=== PATIENT | male | born 1985 | race Caucasian/White ===

== ENCOUNTER 2020-01-02 10:08 | Emergency (ER) | payer OTHER, SELFPAY ==
[2020-01-02 10:20] VITALS: BP 143/88; PULSE 76; RESP 18; TEMP 36.7; O2SAT 98
--- NOTE | 2020-01-02 10:41 | ED.HA ---
HPI - Headache General Chief Complaint: Headache Stated Complaint: Headache Time Seen by Provider: 01/02/20 10:42 Source: patient and RN notes reviewed Mode of arrival: ambulatory Limitations: no limitations History of Present Illness HPI Narrative: 34-year-old male presents with concern for 3 to 5-day history of headache. Reports taking ibuprofen with reduction in headache, without resolution of headache. He denies any injury, head trauma. He denies nausea, vomiting. Reports this is not the worst headache of his life, denies thunderclap onset. Denies any weakness in any extremity, denies vision changes. Denies rhinorrhea, eyes watering. Denies sore throat, nasal congestion. Denies history of migraines. MD elicited complaint: headache Related Data Allergies Allergy/AdvReac Type Severity Reaction Status Date / Time No Known Allergies Allergy Verified 01/02/20 10:37 Review of Systems Review of Systems: Narrative: CONSTITUTIONAL: Denies malaise, chills, sweats, or fever. EYES: Denies visual changes, redness, or discharge. ENT: Denies rhinorrhea, congestion, sinus pain, otalgia or sore throat. CARDIOVASCULAR: Denies chest pain, palpitations, or edema. RESPIRATORY: Denies cough or dyspnea. GASTROINTESTINAL: Denies abdominal pain, nausea, vomiting, diarrhea SKIN: Denies rash or itching. MUSCULOSKELETAL: Denies back pain, joint pain, or myalgia. NEUROLOGIC: Denies numbness, weakness. Reports headache. PSYCHIATRIC: Denies anxiety or depression. All systems reviewed & are unremarkable except as noted in HPI and below PMFSH Comments At time of signature, agree with nursing past medical, surgical, social and family history. There is no relevant family history pertinent to the presenting complaint Exam Narrative: Exam Narrative: GENERAL: Well-appearing, well-nourished, and in no acute distress. HEAD: Normocephalic, atraumatic. EYES: PERRLA, conjunctivae clear, and EOMI. No nystagmus. ENT: Nares clear, turbinates pink, no rhinorrhea or epistaxis. Mucous membranes moist. NECK: Supple. No lymphadenopathy. CHEST: No respiratory distress. Clear to auscultation. No bony deformities, no asymmetry. Speaks in full sentences. HEART: Regular rate and rhythm. No murmur heard. EXTREMITIES: Normal range of motion. No edema. Normal strength and sensation. SKIN: Warm, dry, no rash. NEURO: Alert and oriented x3. No focal deficits. Cranial nerves II through XII grossly intact PSYCH: Normal mood and affect Course Course Emergency Course: Patient is aware of diagnosis, understands and agrees to treatment plan. Anticipatory guidance given. Patient agrees to follow-up as directed and is aware of reasons to seek care at the emergency department. Portions of this record may have been created with voice recognition software Vital Signs Vital signs: Vital Signs Temperature 98.1 F 01/02/20 10:20 Pulse Rate 76 01/02/20 10:20 Respiratory Rate 18 01/02/20 10:20 Blood Pressure 143/88 H 01/02/20 10:20 Pulse Oximetry 98 01/02/20 10:20 Temperature 98.1 F 01/02/20 10:20 Pulse Rate 76 01/02/20 10:20 Respiratory Rate 18 01/02/20 10:20 Blood Pressure 143/88 H 01/02/20 10:20 Pulse Oximetry 98 01/02/20 10:20 Reviewed. MDM - Headache MDM Narrative Medical decision making narrative: The patient presents with an acute onset headache for 3-5 days in duration. Patient has no past history of headaches. There is not a history of anticoagulation, trauma, , cancer or immunocompromised state. Mental status was normal, no neurological deficits were noted. Differential Diagnosis considered includes hypertensive emergency, subarachnoid hemorrhage, meningitis, trauma, CVA, migraine. IM Toradol was given without immediate relief of symptoms. Recommendations were given for follow-up with PCP in 1-2 days and to return to the ED for worsening of headache or any other concerns Based on the patient's history and physical there is very l
[2020-01-02] MEDS: KETOROLAC (*BKC) 60 MG/2 ML VIAL IM (10:49)
[2020-01-02 11:10] VITALS: BP 130/80
== END 2020-01-02 11:15 | disposition home or self-care (01) ==
PROVIDERS: Emergency Provider Nurse Practitioner
DX: R51 Headache (principal)
CPT/HCPCS: 96372; 99213; G0463; J1885

== ENCOUNTER 2023-01-09 11:46 | Emergency (ER) | payer OTHER, SELFPAY ==
[2023-01-09 11:56] VITALS: BP 146/114; PULSE 109; RESP 20; TEMP 36.7; O2SAT 99
--- NOTE | 2023-01-09 13:14 | ED.NAVMDI ---
HPI - Nausea/Vomiting/Diarrhea General Chief complaint: Nausea/Vomiting/Diarrhea Stated complaint: aches nausea headache Time Seen by Provider: 01/09/23 13:05 Source: patient, RN notes reviewed and old records reviewed Mode of arrival: ambulatory Limitations: no limitations History of Present Illness HPI Narrative: 37 year old male who presents to express care with complaints of feeling sweaty,having migraine headache since Monday, nausea vomiting X1 today, unable to eat over the weekend . He reports he feels like he has heartburn. Patient states that he took a Covid test this morning which was negative. Patient also reports that he has some throat pain which he rates as 5/10. Patient reports that he has been taking some Ibuprofen for his complaints. Patient admits to alcohol binge about 2 weeks ago states that he had not drank for about 16 months, does have appointment with [facility]. elicited complaint: nausea, vomiting, abdominal pain and other (headache) Pertinent past history: alcohol abuse Onset (ago): day(s) (4) Description of vomiting: food contents Associated nausea: Yes Associated abdominal pain: Yes Location of pain: epigastric Pain scale (0-10): 5 Treatment prior to arrival: other (Ibuprofen) Related Data Home Medications Medication Instructions Recorded Confirmed bupropion HCl 150 mg 24 hr tablet, 150 mg PO DAILY 01/09/23 01/09/23 extended release lithium carbonate 450 mg 450 mg PO DAILY 01/09/23 01/09/23 tablet,extended release losartan 50 mg tablet 50 mg PO DAILY 01/09/23 01/09/23 sertraline 50 mg tablet 50 mg PO DAILY 01/09/23 01/09/23 Allergies Allergy/AdvReac Type Severity Reaction Status Date / Time No Known Allergies Allergy Verified 01/09/23 12:05 Review of Systems Review of Systems: CONSTITUTIONAL: Denies fever, chills, positive for sweats. EYES: Denies visual changes, redness, or discharge. ENT: Denies rhinorrhea, congestion, positive for sore throat, or otalgia. CARDIOVASCULAR: Denies chest pain, palpitations, or edema. RESPIRATORY: Denies cough or dyspnea. GASTROINTESTINAL: states epigastric abdominal pain, nausea, vomiting, no diarrhea. GENITOURINARY: Denies dysuria or hematuria. SKIN: Denies rash or itching. MUSCULOSKELETAL: Denies back pain, joint pain, or myalgia. NEUROLOGIC: Reports headache, no numbness, or weakness. PSYCHIATRIC:Positive anxiety or depression. All systems reviewed & are unremarkable except as noted in HPI and below PMFSH Past Medical History Medical History (Updated 01/10/23 @ 13:55 by Becka Arauz NP) Anxiety and depression Hyperlipidemia Hypertension Liver failure Surgical History Surgical History (Updated 01/10/23 @ 13:51 by Becka Arauz NP) H/O Spinal surgery Social History Social History (Updated 01/10/23 @ 13:53 by Becka Arauz NP) Smoking packs per day: 1 Smoking cigarettes per day: 20.0 Smoking status: Current every day smoker Tobacco type: cigarettes Alcohol use details: went on binge 2 weeks ago had previously been sober for 16 months Substance use type: does not use Gender identity (if verbalized by the patient): Male Comments At time of signature, agree with nursing past medical, surgical, social and family history. There is no relevant family history pertinent to the presenting complaint Exam Narrative: GENERAL: Well-appearing, well-nourished, and in no acute distress. HEAD: Normocephalic, atraumatic. EYES: PERRLA and EOMI. ENT: Nares clear, no rhinorrhea or epistaxis. Mucous membranes moist.TM's normal, throat pain no swelling or tonsil swelling NECK: Supple.no lymphadenopathy CHEST: Clear to auscultation. No respiratory distress.SAO2 99% on room air HEART: Regular rate and rhythm. No murmur heard. Normal peripheral pulses. ABDOMEN: Soft, nontender, nondistended, normal active bowel sounds. EXTREMITIES: Normal range of motion. No edema. reported nausea with one episode of vomiting, epigastr
[2023-01-09 13:24] VITALS: BP 152/108
== END 2023-01-09 13:26 | disposition home or self-care (01) ==
PROVIDERS: Emergency Provider Registered Nurse; PCP Nurse Practitioner Family
DX: R11.2 Nausea with vomiting, unspecified (principal); R10.13 Epigastric pain; F10.10 Alcohol abuse, uncomplicated; E78.5 Hyperlipidemia, unspecified; F41.9 Anxiety disorder, unspecified; F32.A Depression, unspecified; I10 Essential (primary) hypertension; F17.210 Nicotine dependence, cigarettes, uncomplicated
CPT/HCPCS: 87081; 87804; 87880; 99213; G0463

== ENCOUNTER 2024-10-29 17:24 | Emergency (ER) | payer OTHER, SELFPAY ==
[2024-10-29 17:34] VITALS: BP 139/93; PULSE 80; RESP 20; TEMP 36.4; O2SAT 98
--- NOTE | 2024-10-29 18:26 | ED.EXTPRO ---
HPI - Extremity Problem General Chief complaint: Extremity Problem,Nontraumatic Stated complaint: Stomach Pain/Right Shoulder Pain Source: patient Mode of arrival: ambulatory Limitations: no limitations History of Present Illness HPI Narrative: Patient presents requesting a note to excuse him from work today. He indicates that he had an upset stomach last night and over sleeping today. He feels much better now. He actually denies any other GI symptoms. He would simply like a note excusing him from work. He also reports some right shoulder pain. He denies any precipitating cause or injury. He is not sure whether he pulled a muscle. He was evaluated at [facility] recently and had an x-ray which was normal. He was given a prescription for steroids and Flexeril. Medications did help. He has an upcoming appointment for an MRI. He would like a refill on Flexeril. He rates his pain as 6/10. No loss of ROM but certain positions make his symptoms better/worse. Related Data Allergies Allergy/AdvReac Type Severity Reaction Status Date / Time No Known Allergies Allergy Verified 10/29/24 17:37 Review of Systems Review of Systems: CONSTITUTIONAL: Denies fever, chills, or sweats. EYES: Denies visual changes, redness, or discharge. ENT: Denies rhinorrhea, congestion, sore throat, or otalgia. CARDIOVASCULAR: Denies chest pain, palpitations, or edema. RESPIRATORY: Denies cough or dyspnea. GASTROINTESTINAL: Denies abdominal pain, nausea, vomiting, or diarrhea. GENITOURINARY: Denies dysuria or hematuria. SKIN: Denies rash or itching. MUSCULOSKELETAL: Reports right shoulder pain NEUROLOGIC: Denies headache, numbness, dizziness, or weakness. PSYCHIATRIC: Denies anxiety or depression. [facility] Past Medical History Medical History Hyperlipidemia Liver failure Anxiety and depression Hypertension Surgical History Surgical History H/O Spinal surgery Family History Family History Mother Family history non-contributory Social History Social History Smoking packs per day: 1 Smoking cigarettes per day: 20.0 Smoking status: Current every day smoker Tobacco type: cigarettes Alcohol use details: went on binge 2 weeks ago had previously been sober for 16 months Substance use type: does not use Gender identity (if verbalized by the patient): Male Exam Narrative: GENERAL: Well-appearing, well-nourished, and in no acute distress. HEAD: Normocephalic, atraumatic. EYES: PERRLA and EOMI. ENT: Nares clear, no rhinorrhea or epistaxis. Mucous membranes moist. Oropharynx without tonsillar hypertrophy exudate or other lesions. Bilateral TMs pearly weber nonbulging NECK: Supple. No adenopathy or masses. No carotid bruits or JVD CHEST: Clear to auscultation. No respiratory distress. No wheezes rales or rhonchi HEART: Regular rate and rhythm. No murmur heard. Normal peripheral pulses. ABDOMEN: Soft, nontender, nondistended, normal active bowel sounds. EXTREMITIES: Normal range of motion. No edema. Mild tenderness in right shoulder SKIN: Warm, dry, no rash. NEURO: No focal deficits. Alert and oriented x3. PSYCH: Normal mood and affect. Course Course Emergency Course: This is a 39-year-old male who presented requesting a note to excuse him from work today. His GI symptoms have resolved. This is a reasonable request so provided him with a note. Will also plan to refill his Flexeril. He should follow-up for his MRIs previously planned and go to the ER for intractable pain. Patient in agreement with plan of care. Level of Care: Express Care Visit Vital Signs Vital signs: Vital Signs Temperature 36.4 C L 10/29/24 17:34 Pulse Rate 80 10/29/24 17:34 Respiratory Rate 20 10/29/24 17:34 Blood Pressure 139/93 H 10/29/24 17:34 Pulse Oximetry 98 10/29/24 17:34 Oxygen Delivery Room Air 10/29/24 17:34 Temperature 36.4 C L 10/29/24 17:34 Pulse Rate 80 10/29/24 17:34 Respiratory Rate 20 10/29/24 17:34 Blood Pressure 139/93 H 10/29/24 17:34 Pulse Oximetry 98 10/29/24 17:34 Oxygen Delivery Room Air 10/29/24 17:34 Discharge Plan Discharge Clinical Impression: Medication refill, Return to work exam Patient Disposition: Home, Self-Care Condition: Stable Instructions: Antibiotic Form, Shoulder Pain (ED) Patient Language: Tristanian Prescriptions: New cyclobenzaprine 10 mg tablet 10 mg PO TID PRN (Reason: muscle spasm) Qty: 15 0RF Follow-up/Referrals: Maxine Palma DO [Physician] - Stand Alone Forms: Work/School Release IP Time of Disposition: 18:25
--- OUTSIDE RECORDS SUMMARY | 2024-10-29 18:57 | XMS_ITS | Patient Health Record ---
Author Organization [facility]ly [facility] Address [address] [place] [address] Care Team Providers Care Bell Spinner Name Role Phone Fransisco Foote Primary Care Provider Allergies No Known Allergies Reason For Referral No Information Medications Medication SIG (Take, Route, Frequency, Duration) Notes Start Date End Date Status buPROPion HCl ER (XL) 300 MG 1 tablet in the morning Orally Once a day for 30 days Active ARIPiprazole 15 MG 1 tablet Orally Once a day for 30 days Active Gabapentin 300 MG 1 capsule Orally Thr ee times a day for 30 days Active Sertraline HCl 50 MG 1 tablet at night O rally Once a day for 30 days Active Social History Tobacco Use: Social History Observation Description Date Details (start date - stop date) Current Smoker NA - NA Sex Assigned At : Social History Observation Description Sex Assigned At Male Dont use, Tobacco Use/Smoking Question Answer Notes Are you a current smoker How many cigarettes a day do you smoke? 11-20 Additional Findings: Tobacco User e-Cigarette Problems Problem Type SNOMED Code ICD Code Onset Dates Problem Status W/U Status Risk Notes Problem Tobacco user (199038243) Nicotine dependence, unspecified, uncomplicated (F17.200) Active confirmed Problem Generalized anxiety disorder (16831900) Generalized anxiety disorder (F41.1) Active confirmed Problem Mood disorder (91930811) Mood disorder (F39) Active confirmed likely bipolar 2 Problem Bipolar 2 disorder (65312405) Bipolar 2 disorder (F31.81) Active confirmed Problem 278782961 Alcohol use disorder, moderate, dependence (F10.20) Active confirmed Problem 599721212 Tobacco use disorder (F17.200) Active confirmed Plan Of Treatment No Information Insurance Providers Payer Name Payer Address Payer Phone Subscriber Number Group Number Insured Name Patient Relationship to Insured Coverage Start Date Coverage End Date [facility] [address] [place] [phone] [id number] NetoMarlo lau Self - patient is the insured 0 Medications Administered Medication Instructions Date of Administration Dosage Notes Vivitrol 04/19/2022 380 mg Pt. tolerated well. No questions/concerns at this time. See encounter notes. Vivitrol 05/17/2022 380 mg Pt. tolerated well. No questions/concerns at this time. Medical (General) History Medical History History ICD Code Alcohol use disorder HTN Surgical History Surgery Date(Month/Year) Spinal fusion 2010 Hospitalization History Reason Date(Month/Year) Rehab 2018
--- OUTSIDE RECORDS SUMMARY | 2024-10-29 18:57 | XMS_ITS | Clinical Summary ---
Author Organization [facility] Address [address] [place] [address] Phone Care Team Providers Care Stripper Machine Operator Name Role Phone Leticia Ghosh KENYA LUGO Primary Care Provider [phone] Allergies No known active allergies Medications naproxen (NAPROSYN) 500 MG Tablet Take 1 Tablet by mouth 2 times daily as needed for Moderate or more severe pain. 20 Tablet 5 Active naproxen (NAPROSYN) 500 MG Tablet Take 1 Tablet by mouth 2 times daily as needed for Moderate or more severe pain. 20 Tablet 5 Active cyclobenzaprine (FLEXERIL) 10 MG Tablet Take 1 Tablet by mouth 3 times daily as needed (pain) for up to 14 days. 30 Tablet 5 10/08/19 25 predniSONE (DELTASONE) 50 MG Tablet Take 1 Tablet by mouth daily for 7 days. 7 Tablet 5 10/01/19 25 cyclobenzaprine (FLEXERIL) 10 MG Tablet Take 1 Tablet by mouth 3 times daily as needed (pain) for up to 14 days. 30 Tablet 5 10/08/19 25 Encounters Date Type Department Care Team Description 09/24/2024 1:26 PM UNIT ASSEMBLER - 09/24/2024 2:20 PM UNIT ASSEMBLER Emergency [facility] [address] [place] [address] Rapoff, Jemal Cooper, DO Right shoulder pain Discharge Disposition: Discharged to home or Selfcare 09/24/2024 Travel from Last 3 Months Social History Tobacco Use Types Packs/Day Years Used Date Smoking Tobacco: Every Day Cigarettes Smokeless Tobacco: Never Alcohol Use Standard Drinks/Week Comments Not Currently 0 (1 standard drink = 0.6 oz pur e alcohol) Sex and Gender Information Value Date Recorded Sex Assigned at Not on file Legal Sex Male 11:54 PM CDT Gender Identity Not on file Sexual Orientation Not on file Last Filed Vital Signs Vital Sign Reading Time Taken Comments Blood Pressure 150/88 09/24/2024 1:27 PM UNIT ASSEMBLER Pulse 89 09/24/2024 1:27 PM UNIT ASSEMBLER Temperature 36.2 C (97.1 F) 09/24/2024 1:27 PM UNIT ASSEMBLER Respiratory Rate 18 09/24/2024 1:27 PM UNIT ASSEMBLER Oxygen Saturation 97% 09/24/2024 1:27 PM UNIT ASSEMBLER Inhaled Oxygen Concentration - - Weight 99.8 kg (220 lb) 09/24/2024 1:27 PM UNIT ASSEMBLER Height 188 cm (6' 2 ) 09/24/2024 1:27 PM UNIT ASSEMBLER Body Mass Index 28.25 09/24/2024 1:27 PM UNIT ASSEMBLER Plan of Treatment Health Maintenance Due Date Last Done Comments Hepatitis C Virus (HCV) Screening 1986 TdaP Immunization 1986 Hepatitis B Immunization (1 of 3 - 19+ 3-dose series) 2005 Influenza Immunization (#1) 2024 SARS-COV-2 Immunization ( season) 2024 Respiratory Syncytial Virus (RSV) Immunization (Adult) (1 - 1-dose 75+ series) 2061 DTaP/Tdap/Td Immunization Discontinued 2001, 06/09/1992, 12/31/1987, Additional history exists Meningococcal Immunization (ACWY) Aged Out No longer eligible based on patient's age to complete this topic Pneumococcal Immunization Combined Aged Out No longer eligible based on patient's age to complete this topic Rotavirus Immunization Aged Out No lo nger eligible based on patient's age to complete this topic Procedures Procedure Name Priority Date/Time Associated Diagnosis Comments XR SHOULDER COMPLETE RIGHT STAT 09/24/2024 1:52 PM UNIT ASSEMBLER from Last 3 Months Results * XR SHOULDER COMPLETE RIGHT (09/24/2024 1:52 PM UNIT ASSEMBLER) Anatomical Region Laterality Modality UPPER EXTREMITY, shoulder Right Digita l Radiography 09/24/2024 2:07 PM UNIT ASSEMBLER Impressions 09/24/2024 2:09 PM UNIT ASSEMBLER IMPRESSION: No acute osseous abnormality of the right shoulder. Narrative 09/24/2024 2:09 PM UNIT ASSEMBLER EXAM DESCRIPTION: XR SHOULDER COMPLETE RIGHT REASON FOR STUDY: right shoulder pain for 1 week TECHNIQUE: XR SHOULDER COMPLETE RIGHT COMPARISON: None. FINDINGS: Right humeral head projects normally over the glenoid. No acute fracture or dislocation. The acromioclavicular joint appears intact. No erosion or aggressive osseous lesion. Included right upper ribs appear intact. THIS IS AN ELECTRONICALLY VERIFIED FINAL REPORT 09/24/2024 2:07 PM - Electronically signed by Berny Solitario M.D. CH: Report ID: [id number] Reading Location: [id number] Procedure Note Berny Solitario Jr., MD - 09/24/2024 EXAM DESCRIPTION: XR SHOULDER COMPLETE RIGHT REASON FOR STUDY: right shoulder pain for 1 week TECHNIQUE: XR SHOULDER COMPLETE RIGHT COMPARISON: None. FINDINGS: Right humeral head projects normally over the glenoid. No acute fracture or dislocation. The acromioclavicular joint appears intact. No erosion or aggressive osseous lesion. Included right upper ribs appear intact. THIS IS AN ELECTRONICALLY VERIFIED FINAL REPORT 09/24/2024 2:07 PM - Electronically signed by Berny Solitario M.D. CH: JEN Report ID: [id number] Reading Location: [id number] IMPRESSION: No acute osseous abnormality of the right shoulder. us Jemal Prather DO IMG DIAGNOSTIC ORDERABL ES Final Result from Last 3 Months Insurance [facility] Care Teams Stripper Machine Operator Relationship Specialty Start Date End Date Ghosh, BRITTNEY Kelly, KENYA [address] [place] [address] PCP - General Family Medicine 07/22/21
== END 2024-10-29 18:28 | disposition home or self-care (01) ==
PROVIDERS: Emergency Provider Nurse Practitioner
DX: Z02.79 Encounter for issue of other medical certificate (principal); Z76.0 Encounter for issue of repeat prescription; M25.511 Pain in right shoulder; E78.5 Hyperlipidemia, unspecified; I10 Essential (primary) hypertension; F17.210 Nicotine dependence, cigarettes, uncomplicated
CPT/HCPCS: 99211; 99213; G0463

== ENCOUNTER 2024-12-05 11:04 | Emergency (ER) | payer OTHER, SELFPAY ==
[2024-12-05 11:24] VITALS: BP 133/79; PULSE 78; RESP 16; TEMP 36.9; O2SAT 97
--- NOTE | 2024-12-05 11:49 | ED_ITS ---
HPI - Abdominal Pain General Chief Complaint: Abdominal Pain Stated Complaint: Abdominal Pain Time Seen by Provider: 12/05/24 12:03 Source: patient, RN notes reviewed and old records reviewed Mode of arrival: ambulatory Limitations: no limitations History of Present Illness HPI narrative: 39-year-old male presents to the [facility] with complaints of right lower quadrant abdominal pain for 2 days. No history prior to arrival. No nausea vomiting. Pain is worse with bowel movements. Denies fevers. Denies any significant medical history. Denies any abdominal surgery Onset (ago): day(s) (2) Related Data Home Medications ?Medication ?Instructions ?Recorded ?Confirmed ?Last Taken ?Type No Home Medications 12/05/24 12/05/24 Unknown History Allergies Allergy/AdvReac Type Severity Reaction Status Date / Time No Known Allergies Allergy Verified 12/05/24 11:41 Review of Systems Review of Systems: All systems reviewed & are unremarkable except as noted in HPI and below Constitutional: Constitutional: Reports no additional constitutional complaints ENT: Reports system reviewed and no additional complaints, except as docu mented Cardiovascular: Cardiovascular: Reports no additional cardiovascular complaints, Denies chest pain and Denies dyspnea Respiratory: Respiratory: Reports no additional respiratory complaints, Denies chest congestion, Denies cough and Denies dyspnea Gastrointestinal: Gastrointestinal: Reports as per HPI, Reports abdominal pain, Denies belching and Reports change in bowel habits (Increased) Musculoskeletal: Musculoskeletal: Reports no additional musculoskeletal complaints Integumentary/Breasts: Skin/Breast: Reports system reviewed and no additional complaints, except as docu PMFSH Past Medical History Medical History Hyperlipidemia Liver failure Anxiety and depression Hypertension Surgical History Surgical History H/O Spinal surgery Family History Family History Mother Family history non-contributory Social History Social History Smoking packs per day: 1 Smoking cigarettes per day: 20.0 Smoking status: Current every day smoker Tobacco type: cigarettes Alcohol use details: went on binge 2 weeks ago had previously been sober for 16 months Substance use type: does not use Gender identity (if verbalized by the patient): Male Comments At the time of my signature, I reviewed and agree with the nursing past medical, surgical, social, and family history. There is no relevant family history pertinent to the patient complaint. Exam Const: General: cooperative, healthy appearing, comfortable, no acute distress, well developed, alert and well nourished Nutritional Appearance: well nourished Orientation/consciousness: patient oriented x3 Limitations: no limitations HENMT: Head: normal to inspection Eyes: General: appearance normal, both eyes and all related structures Alignment and Position: alignment normal Neck: Neck: normal visual inspection, full ROM, no lymphadenopathy and no meningeal signs Chest: Chest palpation & inspection: normal inspection of the chest Resp: Effort & Inspection: normal respiratory effort and able to speak in complete sentences Auscultation: clear to auscultation bilaterally, no crackles, no rales, no rhonchi and no wheezes Cardio: Rate: regular rate GI: GI Palp: Yes abdominal tenderness, Yes Soft to palpation, Yes Tenderness to palpation present (GI) and Yes Rebound tenderness present (Right lower quadrant) Auscultation: normal bowel sounds Skin: General skin exam: normal color and no rashes or lesions noted Neuro: General: patient oriented x3, gait normal, moves all extremities and no meningeal signs Cognition (Neuro): normal cognition Speech: normal speech Gait exam (Neuro): Normal gait present Extrem: General: normal to inspection, full ROM, capillary refill normal and normal gait Psych: Appearance: grossly normal and well kempt Mental Status: mental status grossly normal Speech and movement: Normal speech and movement present and Clear speech present Affect: normal affect Attitude: cooperative Course Course Level of Care: Express Care Visit Vital Signs Vital signs: Vital Signs Temperature 98.4 F 12/05/24 11:24 Pulse Rate 78 12/05/24 11:24 Respiratory Rate 16 12/05/24 11:24 Blood Pressure 133/79 12/05/24 11:24 Pulse Oximetry 97 12/05/24 11:24 Oxygen Delivery Room Air 12/05/24 11:24 Temperature 98.4 F 12/05/24 11:24 Pulse Rate 78 12/05/24 11:24 Respiratory Rate 16 12/05/24 11:24 Blood Pressure 133/79 12/05/24 11:24 Pulse Oximetry 97 12/05/24 11:24 Oxygen Delivery Room Air 12/05/24 11:24 Reviewed Transfer Transfered to: [facility] (Per patient request) Transportation: Other (POV per patient request) Transfer rationale: Patient with right lower quadrant pain. Denied any medical history, rebound tenderness right lower quadrant sending rule out appendicitis or acute abdomen Accepting physician: Spoke with Sierra CARTER, Dr. Olivas MDM - Abdominal Pain MDM Narrative Medical decision making narrative: Patient sitting in exam room. Nontoxic, vitals stable. Patient in no acute distress. Patient presents with right lower quadrant pain x2 days Right lower quadrant, rebound tenderness sending for higher level care rule out appendicitis versus acute abdomen Transfer instructions reviewed with patient to go directly to the ER. Do not eat or drink until clear by ER provider All questions have been answered, and the patient deny any further questions. Some parts of this dictation were generated by voice recognition software and may contain typographical and/or grammatical inaccuracies. Differential Diagnosis Differential diagnosis: Likely abdominal pain, acute appendicitis, calculus of kidney, gastroenteritis, pancreatitis and small bowel obstruction Critical Care Time Critical Care Time Critical Care Time: No Discharge Plan Discharge Clinical Impression: Acute right lower quadrant pain Patient Disposition: Acute Care Hospital Condition: Stable Patient Language: Pakistani Prescriptions: No Action No Home Medications Follow-up/Referrals: PHYSICIAN,STOREKEEPER ENGINEERING [Primary Care Provider] -
--- OUTSIDE RECORDS SUMMARY | 2024-12-05 11:57 | XMS_ITS | Clinical Summary ---
Author Organization [facility] Address [address] [place] [address] Phone Care Team Providers Care Rhinestone Setter Name Role Phone Leticia Ghosh APRKENYA Ceballos Primary Care Provider [phone] Allergies No known active allergies Medications naproxen (NAPROSYN) 500 MG Tablet Take 1 Tablet by mouth 2 times daily as needed for Moderate or more severe pain. 20 Tablet 09/24/2024 Active naproxen (NAPROSYN) 500 MG Tablet Take 1 Tablet by mouth 2 times daily as needed for Moderate or more severe pain. 20 Tablet 09/24/2024 Active Encounters Date Type Department Care Team Description 09/24/2024 1:26 PM MEDIA PRODUCER - 09/24/2024 2:20 PM MEDIA PRODUCER Emergency [facility] Emergency [address] [place] [address] Jemal Prather DO Right shoulder pain Discharge Disposition: Discharged [...] Comments Blood Pressure 150/88 09/24/2024 1:27 PM MEDIA PRODUCER Pulse 89 09/24/2024 1:27 PM MEDIA PRODUCER Temperature 36.2 C (97.1 F) 09/24/2024 1:27 PM MEDIA PRODUCER Respiratory Rate 18 09/24/2024 1:27 PM MEDIA PRODUCER Oxygen Saturation 97% 09/24/2024 1:27 PM MEDIA PRODUCER Inhaled Oxygen Concentration - - Weight 99.8 kg (220 lb) 09/24/2024 1:27 PM MEDIA PRODUCER Height 188 cm (6' 2 ) 09/24/2024 1:27 PM MEDIA PRODUCER Body Mass Index 28.25 09/24/2024 1:27 PM MEDIA PRODUCER Plan of Treatment Health Maintenance Due Date Last Done Comments Hepatitis C Virus (HCV) Screening 1986 TdaP Immunization 1986 Hepatitis B Immunization (1 of 3 - 19+ 3-dose series) 2005 Influenza Immunization (#1) 2024 SARS-COV-2 Immunization ( - 2023- season) 2024 Respiratory Syncytial Virus (RSV) Immunization [...] SHOULDER COMPLETE RIGHT STAT 09/24/2024 1:52 PM MEDIA PRODUCER from Last 3 Months Results * XR SHOULDER COMPLETE RIGHT (09/24/2024 1:52 PM MEDIA PRODUCER) Anatomical Region Laterality Modality UPPER EXTREMITY, shoulder Right Digita l Radiography 09/24/2024 2:07 PM MEDIA PRODUCER Impressions 09/24/2024 2:09 PM MEDIA PRODUCER IMPRESSION: No acute osseous abnormality of the right shoulder. Narrative 09/24/2024 2:09 PM MEDIA PRODUCER EXAM DESCRIPTION: XR SHOULDER COMPLETE RIGHT REASON [...] by Berny Solitario M.D. CH: Report ID: [id number] Reading Location: [id number] Procedure Note Berny Solitario Jr., MD - [...] by Berny Solitario M.D. CH: Report ID: [id number] Reading Location: [id number] IMPRESSION: No acute osseous abnormality of the right shoulder. us Jemal Prather DO IMG DIAGNOSTIC ORDERABL ES Final Result from Last 3 Months Insurance [facility] Care Teams Rhinestone Setter Relationship Specialty Start Date End Date Ghosh, Leticia, CHEF BROILER OR FRY, KENYA [address] [place] [address] PCP - General Family Medicine 07/22/21
--- OUTSIDE RECORDS SUMMARY | 2024-12-05 11:57 | XMS_ITS | Patient Health Record ---
Author Organization [facility] Address [address] [place] [address] Care Team Providers Care Community Service Officer Coordinator Name Role Phone Fransisco Foote Primary Care Provider [phone] Allergies No Known Allergies Reason For Referral [...] W/U Status Risk Notes Problem Tobacco user (362639170) Nicotine dependence, unspecified, uncomplicated (F17.200) Active confirmed Problem Generalized anxiety disorder (71912554) Generalized anxiety disorder (F41.1) Active confirmed Problem Mood disorder (60636607) Mood disorder (F39) Active confirmed likely bipolar 2 Problem Bipolar 2 disorder (25519240) Bipolar 2 disorder (F31.81) Active confirmed Problem 008338396 Alcohol use disorder, moderate, dependence (F10.20) Active confirmed Problem 331917598 Tobacco use disorder (F17.200) Active confirmed Plan Of Treatment No Information Insurance Providers Payer Name Payer Address Payer Phone Subscriber Number Group Number Insured Name Patient Relationship to Insured Coverage Start Date Coverage End Date [facility] [address] [place] [address] [id number] HoonahMarlo lau Self - patient is the insured [...]
== END 2024-12-05 12:11 | disposition short-term general hospital (02) ==
PROVIDERS: Emergency Provider Nurse Practitioner
DX: R10.31 Right lower quadrant pain (principal); F17.210 Nicotine dependence, cigarettes, uncomplicated; I10 Essential (primary) hypertension; E78.5 Hyperlipidemia, unspecified
CPT/HCPCS: 99212; G0463

== ENCOUNTER 2025-05-06 15:28 | Emergency (ER) | payer BC, SELFPAY ==
--- OUTSIDE RECORDS SUMMARY | 2025-05-06 15:32 | XMS_ITS | Clinical Summary ---
Author Organization [facility] [address] [facility] Address [address] [place] [address] [place] [address] Care Team Providers Care Ball Shagger Name Role Phone No, Physician Primary Care Provider [phone] Allergies Active Allergy Reactions Criticality Noted Date Comments Aspirin Unknown 12/09/2024 Medications cyclobenzaprine (FLEXERIL) 10 mg tabletIndicatio ns:Muscle Spasm Take 1 tablet (10 mg total) by mouth 3 (three) times a day as needed for muscle spasms Active pantoprazole DR (PROTONIX) 40 mg EC tablet Take 1 tablet (40 mg total) by mouth daily 30 tablet 11 12/09/[address] (NexIUM) 40 mg capsule Take 1 capsule (40 mg total) by mouth 2 (two) times a day for 14 days 28 capsule 12/22/2024 Active Active Problems Problem Noted Date Diagnosed Date Helicobacter pylori infection 01/08/2025 Gastric ulcer 01/08/2025 Abdominal pain 12/06/2024 Weight loss 12/06/2024 Family history of colon cancer 12/06/2024 Immunizations Immunization Administration Dates Next Due DTaP 06/09/1992,12/31/1987,1986 ,1986,1986 HiB 02/19/1997 MMR 06/09/1998,02/20/1988 OPV 06/09/1992,12/31/1987,1986 ,1986,1986 Td, adsorbed 08/06/2002 Surgical History Surgery Date Site/Laterality Comments BACK SURGERY COLONOSCOPY 12/09/2024 1st UPPER GASTROINTESTINAL ENDOSCOPY 12/09/2024 Medical History Medical History Date Comments Alcohol abuse Family History Medical History Relation Name Comments Abdominal Aortic Aneurysm Father Esophageal cancer Father Cancer Maternal Grandfather Cancer Maternal Grandmother Colon cancer Mother Relation Name Status Comments Father Maternal Grandfather Maternal Grandmother Mother Social History Tobacco Use Types Packs/Day Years Used Date Smoking Tobacco: Every Day Cigarettes Vaping Smokeless Tobacco: Current Tobacco Cessation:Ready to Q uit: Not Asked; Counseling Given: Not Answered Alcohol Use Standard Drinks/Week Comments Never 0 (1 standard drink = 0.6 oz pur e alcohol) AUDIT-C Answer Date Recorded Q1: How often do you have a drink containing alcohol? Never 12/09/2024 Q2: How many drinks containi ng alcohol do you have on a typical day when you are drinking? Patient does not drink Q3: How often do you have si x or more drinks on one occasion? Never 12/09/2024 Personal Safety Answer Date Recorded Have you ever been in or are you currently in a harmful physical or emotional relationship or is someone making you feel afraid or unsafe? Denies 12/09/2024 Sex and Gender Information Value Date Recorded Sex Assigned at Not on file Legal Sex Male 7:09 PM ZIPPER SETTER CHAINSTITCH Gender Identity Male 02/15/2022 11:20 PM CDT Sexual Orientation Straight 02/15/2022 11 :20 PM CDT Obstetrics History Last Filed Vital Signs Vital Sign Reading Time Taken Comments Blood Pressure 133/87 12/09/2024 3:26 PM CDT Pulse 64 12/09/2024 3:26 PM CDT Temperature 36.6 C (97.8 F) 12/09/2024 3:26 PM CDT Respiratory Rate 14 12/09/2024 3:26 PM CDT Oxygen Saturation 98% 12/09/2024 3:26 PM CDT Inhaled Oxygen Concentration - - Weight 87.1 kg (192 lb) 12/09/2024 12:26 PM CDT Height 188 cm (6' 2) 12/09/2024 12:26 PM CDT Body Mass Index 24.65 12/09/2024 12:26 PM CDT Plan of Treatment Upcoming Encounters Date Type Department Care Team (Latest Contact Info) Description 06/30/2025 12:00 PM CDT Hospital Encounter [facility] Digestive [facility] [address] [place] [address] Edmond Rodriguez MD [address] [facility] [facility] [address] [address] [place] [address] 06/30/2025 12:00 PM CDT - 06/30/2025 12:30 PM CDT Surgery [facility] [address] [place] [address] Edmond Rodriguez MD [address] [facility] [address] [facility] [address] [place] [address] ESOPHAGOGASTRODUODENOSCOPY Scheduled Procedures Name Priority Associated Diagnoses Date/Ti me ESOPHAGOGASTRODUODENOSCOPY Helicobacter pylori infection Gastric ulcer, unspecified chronicity, unspecified whether gastric ulcer hemorrhage or perforation present 06/30/2025 12:00 PM CDT Health Maintenance Due Date Last Done Comments Depression Screening 1986 Varicella Vaccines (1 of 2 - 13+ 2-dose series) 1999 DTaP/Tdap/Td Vaccine (5 - Tdap) 08/07/2002 08/06/2002, 06/09/1992, 12/31/1987, Additional history exists Hepatitis B Screening 2004 Regular Well Visit/Exam 18-64 2004 Pneumococcal vaccine <65 (1 of 2 - PCV) 2005 HPV Vaccines (1 - 3-dose SCD M series) 2013 Influenza Vaccine (#1) 2025 Colon Cancer Screening-Colonoscopy 12/09/20342024 Hepatitis C Screening Completed 04/16/2018 Medical Devices Implanted Type Area Metal Room Dental Technician Device Identifier Shelf Expiration Date Model / Serial / Lot Pin Pin N/A: Lumbar-Sacr al Spine Description:Lumbar spinal fu nicky Procedures Procedure Name Priority Date/Time Associated Diagnosis Comments COLONOSCOPY 12/09/2024 12:58 PM CDT HEPATITIS PANEL, ACUTE Routine 04/16/2018 1:04 PM CDT from Last 3 Months or Most Recently Relevant to Health Maintenance Results * Colonoscopy (12/09/2024 12:58 PM CDT) Anatomical Region Laterality Modality Other Narrative Procedure Note Edmond Rodriguez MD - 12/09/2024 12:58 PM CDT [facility] Patient Name: Troy Duque Procedure Date: 12/09/2024 12:58 PM Date of : 1985 Admit Type: Outpatient Age: 39 Gender: Male Attending MD: Edmond Rodriguez M.D. Room: [facility] ENDOSCOPY ROOM 1 Note Status: Finalized Patient Profile: This is a 39 year old male. Patient is complains of chronic pain in the upper abdomen, weight loss andhis mother had colon cancer Procedure: Colonoscopy Indications: This is the patient's first colonoscopy, Upper abdominal pain, Weight loss Referring MD: Providers: Edmond Rodriguez M.D. Impression: - One 10 mm polyp in the descending colon, removed with a cold snare. Resected and retrieved. - Internal hemorrhoids. Recommendation: - Await pathology results. - Repeat colonoscopy in 3 years for surveillance. - Continue present medications. Medicines: Monitored Anesthesia Care Complications: No immediate complications. Estimated Blood Loss: Estimated blood loss: none. Procedure: Pre-Anesthesia Assessment: - Prior to the procedure, a History and Physicalwas performed, and patient medications and allergieswere reviewed. The patient's tolerance of previous anesthesia was also reviewed. The risks andbenefits of the procedure and the sedation options and risks were discussed with the patient. All questions were answered, and informed consent was obtained. Prior Anticoagulants: The patient has taken noanticoagulant or antiplatelet agents. ASA Grade Assessment: Per anesthesia note and evaluation. After reviewing the risks and benefits, the patient was deemed in satisfactory condition to undergo the procedure. The benefits, risks and alternatives of theprocedure and sedation were discussed and informed consentwas obtained. All questions were answered. Please referto the signed informed consent document in the medical record. The bowel preparation used was Miralax and bisacodyl tablets via split dose instruction. The scope was passed under direct vision. The Pediatric Colonoscope [id number] was introduced through the anus and advanced to the the cecum, identified by appendiceal orifice and ileocecalvalve. The quality of the bowel preparation was good.Bowel prep was administered using a split dose. Findings: The perianal and digital rectal examinations were normal. The cecum appeared normal. The rectum, sigmoid colon, transverse colon and ascending colonappeared normal. A 10 mm polyp was found in the descending colon. The polyp was semi-sessile. The polyp was removed with a cold snare. Resection and retrieval were complete. Internal hemorrhoids were found during retroflexion. The hemorrhoids were small to medium-sized. Electronically signed by Edmond Rodriguez M.D. Edmond Rodriguez M.D. 12/09/2024 3:57:59 PM Number of Addenda: 0 Note Initiated On: 12/09/2024 12:58 PM Procedure Code(s): --- Professional --- 40305, Colonoscopy, flexible; with removal of tumor(s), polyp(s), or other lesion(s) by snare technique Diagnosis Code(s): --- Professional --- K64.8, Other hemorrhoids D12.4, Benign neoplasm of descending colon R10.10, Upper abdominal pain, unspecified R63.4, Abnormal weight loss CPT copyright 2020 [employer]. All rights reserved. The codes documented in this report are preliminary and upon computer language coder reviewmay be revised to meet current compliance requirements. Recognized by the [employer] for promoting quality in endoscopy us Edmond Rodriguez MD ENDOSCOPY PROCEDURES Final Result * Hepatitis panel, acute (04/16/2018 1:04 PM CDT) Hep A IgM Negative Negative [facility] ([facility]) Comment:Testing performed by : [facility], [address] [place] [address], [id number] Hep B core IgM Negative Negative [facility] (TIMMY) Comment:Testing performed by : [facility], [address] [place] [address], [id number] Hep C Ab Negative Negative [facility] (TIMMY) Comment:Testing performed by : [facility], [address] [place] [address], [facility], [address] HepBsAg Negative Negative [facility] (TIMMY) Comment:Testing performed by : [facility], [address] [place] [address]., [id number] Blood specimen (specimen) 04/16/2018 1:04 PM CDT 04/16/2018 6:45 PM CDT Narrative [facility] ([facility]) - 04/16/2018 8:35 PM CDT us Catalina Mari MD LAB MICROBIOLOGY - GENERAL ORDERABLES Final Result [facility] ([facility]) 1 [facility] [place] [address] from Last 3 Months or Most Recently Relevant to Health Maintenance Insurance ANTH ACCESS CHOICE Member Subscriber Plan / Payer (Ef fective 2017-Present) Name:Troy Duque Relation to Subscriber:Self Name:TROY DUQUE Payer ID:[id number] (NA) Type:[employer] Address: [address] CHOICE PLUS ANTHEM ACCESS CHOICE Advance Directives For more information, please contact: [phone] * Full Code (Latest Code Status on File) Date Activated Date Inactivated Comments 12/09/2024 12:35 PM 12/09/2024 8:23 PM * Full Code Date Activated Date Inactivated Comments 12/09/2024 12:35 PM 12/09/2024 12:35 PM Care Teams Ball Shagger Relationship Specialty Start Date End Date No, Physician PCP - General 12/05/24
--- OUTSIDE RECORDS SUMMARY | 2025-05-06 15:32 | XMS_ITS | Clinical Summary ---
Author Organization [facility] Address [address] [place] [address] Phone Care Team Providers Care Machine Fitter Name Role Phone Leticia Ghosh APRKENYA Ceballos Primary Care Provider [phone] Allergies No known active allergies Medications naproxen (NAPROSYN) 500 MG Tablet Take 1 Tablet by mouth 2 times daily as needed for Moderate or more severe pain. 20 Tablet 09/24/2024 Active naproxen (NAPROSYN) 500 MG Tablet Take 1 Tablet by mouth 2 times daily as needed for Moderate or more severe pain. 20 Tablet 09/24/2024 Active Social History Tobacco Use Types Packs/Day Years [...] Comments Blood Pressure 150/88 09/24/2024 1:27 PM CONTACT CENTER AGENT Pulse 89 09/24/2024 1:27 PM CONTACT CENTER AGENT Temperature 36.2 C (97.1 F) 09/24/2024 1:27 PM CONTACT CENTER AGENT Respiratory Rate 18 09/24/2024 1:27 PM CONTACT CENTER AGENT Oxygen Saturation 97% 09/24/2024 1:27 PM CONTACT CENTER AGENT Inhaled Oxygen Concentration - - Weight 99.8 kg (220 lb) 09/24/2024 1:27 PM CONTACT CENTER AGENT Height 188 cm (6' 2) 09/24/2024 1:27 PM CONTACT CENTER AGENT Body Mass Index 28.25 09/24/2024 1:27 PM CONTACT CENTER AGENT Plan of Treatment Health Maintenance Due Date Last Done Comments Hepatitis C Virus (HCV) Screening 1986 TdaP Immunization 1986 Hepatitis B Immunization (1 of 3 - 19+ 3-dose series) 2005 Human Papillomavirus (HPV) Immunization (1 - 3-dose SCDM series) 2013 Influenza Immunization (#1) 2025 SARS-COV-2 Immunization (1 - 2023- season) 2025 Respiratory Syncytial Virus (RSV) Immunization (Adult) (1 [...] on patient's age to complete this topic Insurance [facility] Care Teams Machine Fitter Relationship Specialty Start Date End Date Leticia Ghosh APRN, KENYA PCP - General Family Medicine 07/22/21
[2025-05-06 15:40] VITALS: BP 144/69; PULSE 56; RESP 16; TEMP 36.6; O2SAT 99
[2025-05-06 16:15] LABS: EDCOVIDSCREEN Negative (Negative); EDINFLUASCREEN Negative (Negative); EDINFLUBSCREEN Negative (Negative)
--- NOTE | 2025-05-06 16:25 | ED_ITS ---
HPI - Nausea/Vomiting/Diarrhea General Chief complaint: Nausea/Vomiting/Diarrhea Stated complaint: nausea/diarrhea Time Seen by Provider: 05/06/25 15:30 Source: patient Mode of arrival: ambulatory Limitations: no limitations History of Present Illness HPI Narrative: Marlo is a 39-year-old male patient presenting to the clinic today with complaints of nausea, diarrhea, and abdominal cramping. He reports the symptoms started last night. He denies any fevers, chills, body aches. States he works at [employer] and had to call into work today and is requesting a work note. Denies any URI symptoms. No chest pain or shortness of breath. States his son came home with similar symptoms this morning from school. patient has had 3 diarrhea stools today. Has not taken any medications for his symptoms. Related Data Allergies Allergy/AdvReac Type Severity Reaction Status Date / Time No Known Allergies Allergy Verified 05/06/25 15:39 Review of Systems Review of Systems: Pertinent positives per HPI. Patient denies any fever, chills, rash, headache, visual changes, dizziness, cough, runny nose, sore throat, shortness of breath, chest pain, palpitations, vomiting, constipation, or any urinary issues. 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 There is no relevant family history pertinent to the patient complaint. Exam Narrative: General: Well-developed, well nourished, in no apparent distress. Head: Normocephalic, atraumatic. Cardio: Regular rate and rhythm, s1 and s2 normal, no murmur appreciated. Resp: Clear to auscultation bilaterally, no rhonchi, rales, wheezing or rubs. Abdomen: Soft, pliable, bowel sounds present in all quadrants, generalized abdominal tender to palpation, no organomegly, no CVAT tenderness. Course Course Emergency Course: Portions of this record may have been created with voice recognition software. Level of Care: Express Care Visit Vital Signs Vital signs: Vital Signs Temperature 36.6 C 05/06/25 15:40 Pulse Rate 56 L 05/06/25 15:40 Respiratory Rate 16 05/06/25 15:40 Blood Pressure 144/69 H 05/06/25 15:40 Pulse Oximetry 99 05/06/25 15:40 Oxygen Delivery Room Air 05/06/25 15:40 Temperature 36.6 C 05/06/25 15:40 Pulse Rate 56 L 05/06/25 15:40 Respiratory Rate 16 05/06/25 15:40 Blood Pressure 144/69 H 05/06/25 15:40 Pulse Oximetry 99 05/06/25 15:40 Oxygen Delivery Room Air 05/06/25 15:40 Vital signs reviewed MDM - Nausea/Vomiting/Diarrhea MDM Narrative Medical decision making narrative: At the time of visit patient is resting comfortably on the exam table. Patient appears to be nontoxic. Complaints of nausea, diarrhea, and abdominal cramping. He reports the symptoms started last night. He denies any fevers, chills, body aches. States he works at [employer] and had to call into work today and is requesting a work note. Denies any URI symptoms. No chest pain or shortness of breath. States his son came home with similar symptoms this morning from school. patient has had 3 diarrhea stools today. Has not taken any medications for his symptoms. On exam patient has generalized abdominal discomfort and active bowel sounds. COVID and influenza testing was ordered. Labs: COVID and influenza testing was negative in the clinic today. Plan: I suspect patient has gastroenteritis. Prescription for Levsin and Zof ran was sent to the pharmacy. Supportive measures were discussed with the patient and they voiced understanding discharge instructions and agrees to treatment plan. Return precautions reviewed Differential Diagnosis Differential diagnosis: Likely traveler's diarrhea, food poisoning, gastroenteritis, clostridium difficile infection, drug-induced nausea and vomiting, dehydration and other (COVID, flu, viral syndrome.) Lab Data Labs: Lab Results 05/06/25 Range/Units 15:58 POC Influenza A Ag Negative (Negative) POC Influenza B Ag Negative (Negative) POC SARS CoV-2 Ag Negative (Negative) Discharge Plan Discharge Clinical Impression: Gastroenteritis Patient Disposition: Home Condition: Stable Instructions: Antibiotic Form, Gastroenteritis (ED) Additional Instructions: COVID and influenza testing was negative in the clinic today. Take prescription medications only as prescribed-ondansetron for nausea and Levsin for abdominal cramping Increase fluids and stay well hydrated May take Tylenol or motrin as directed on bottle for pain/fever May take Imodium as needed for diarrhea there is no blood in your stool. BRAT diet for diarrhea Clear liquids x 24 hours then advance as tolerated for nausea/vomiting Go to the ED if you develop a worsening in your condition- high fever not controlled by Tylenol or Motrin, dehydration, weakness, lethargy, shortness of breath, or chest pain. Follow up with your PCP in 3-5 days if symptoms persist. Patient Language: [place] Prescriptions: New ondansetron 8 mg tablet,disintegrating 8 mg PO Q8H PRN (Reason: nausea and vomiting) 3 Days Qty: 10 0RF hyoscyamine sulfate [Levsin] 0.125 mg tablet 0.125 mg PO QID PRN (Reason: dyspepsia) 3 Days Qty: 12 0RF Follow-up/Referrals: PHYSICIAN,[facility] OPERATOR [Primary Care Provider, Internal Medicine] Stand Alone Forms: Work/School Release IP Time of Disposition: 16:27 Quality NIHSS Nursing Documentation ED NIHSS nursing documentation: reviewed/agree
== END 2025-05-06 16:33 | disposition home or self-care (01) ==
PROVIDERS: Emergency Provider Nurse Practitioner Family
DX: K52.9 Noninfective gastroenteritis and colitis, unspecified (principal); Z20.822 Contact with and (suspected) exposure to COVID-19; F17.210 Nicotine dependence, cigarettes, uncomplicated; E78.5 Hyperlipidemia, unspecified; I10 Essential (primary) hypertension
CPT/HCPCS: 87426; 87804; 99213; G0463